=== PATIENT | male | born 1980 | race Two or more races ===

== ENCOUNTER 2020-05-17 11:14 | Emergency (ER) | payer MEDICAID ==
[~2020-05-17] VITALS: Ht 167.6 cm; Wt 83.7 kg
[2020-05-17 11:55] LABS: BASOPHILS % (AUTO) 0.3 % (0.0-2.0); HEMATOCRIT 44.2 % (41-53); HEMOGLOBIN 14.8 g/dL (13.5-17.5); LYMPHOCYTES # (AUTO) 2.6 K/uL (1.0-4.8); LYMPHOCYTES % (AUTO) 34.1 % (22.0-44.0); MEAN CORPUSCULAR HEMOGLOBIN 33.5 pg (26.0-34.0); MEAN CORPUSCULAR HGB CONC 33.4 G/dL (31.0-37.0); MEAN CORPUSCULAR VOLUME 100 fL (80-100); MONOCYTES # (AUTO) 0.9 K/uL (0.1-1.0); MONOCYTES % (AUTO) 12.3 % (2.0-9.0); NEUTROPHILS % (AUTO) 52.3 % (40.0-70.0); PLATELET COUNT (AUTO) 241 K/uL (150-450); RED BLOOD CELL COUNT(AUTO) 4.41 MIL/uL (4.50-5.90)
[2020-05-17 11:58] LABS: COVID AG,FIA SOURCE NASOPHARYNGEAL
[2020-05-17] MEDS ORDERED: SODIUM CHLORIDE 0.9% 1,000 ML IV ONE (12:00)
[2020-05-17 12:04] LABS: ANION GAP 12 mmol/L (8-16); CALCIUM, TOTAL 8.3 mg/dL (8.8-10.5); CARBON DIOXIDE 23 mmol/L (22-29); CHLORIDE 107 mmol/L (98-107); CREATININE 0.95 mg/dL (0.60-1.30); GLOMERULAR FILTR. RATE CALC > 60 mL/min (>60); GLUCOSE,RANDOM 108 mg/dL (70-110); POTASSIUM 4.6 mmol/L (3.5-5.1); SODIUM SERUM 142 mmol/L (136-145); UREA NITROGEN, BLOOD 10 mg/dL (7-18)
[2020-05-17 12:06] LABS: PROTHROMBIN TIME 10.4 SEC (9.4-11.6)
[2020-05-17 12:09] LABS: APPEARANCE,URINE CLEAR (CLEAR); BILIRUBIN,URINE NEGATIVE (NEGATIVE); GLUCOSE, URINE (UA) NEGATIVE (NEGATIVE); KETONES,URINE NEGATIVE (NEGATIVE); LEUKOCYTE ESTERASE ,URINE NEGATIVE (NEGATIVE); NITRATE,URINE NEGATIVE (NEGATIVE); OCCULT BLOOD,URINE TRACE (NEGATIVE); PH,URINE 5.5 (5.0-8.0); PROTEIN,URINE NEGATIVE (NEGATIVE); UROBILINOGEN,URINE 0.2 mg/dL (<=1.0)
[2020-05-17 12:11] LABS: BACTERIA,URINE None Seen /HPF (None Seen); RBC,URINE 0-2 /HPF (0-2); WBC,URINE None Seen /HPF (0-5)
[2020-05-17 12:14] LABS: AMPHET/METH SCREEN,URINE NEGATIVE (NEGATIVE); BARBITURATE SCREEN, URINE NEGATIVE (NEGATIVE); BENZODIAZEPINES SCREEN,URINE POSITIVE (NEGATIVE); CANNABINOID SCREEN,URINE NEGATIVE (NEGATIVE); COCAINE SCREEN,URINE NEGATIVE (NEGATIVE); METHADONE SCREEN, URINE NEGATIVE (NEGATIVE); OPIATE SCREEN,URINE NEGATIVE (NEGATIVE)
[2020-05-17 12:15] LABS: PHENCYCLIDINE SCREEN,URINE NEGATIVE (NEGATIVE)
[2020-05-17 12:18] LABS: AMMONIA < 10 umol/L (11-32); TROPONIN I < 0.02 ng/mL (0.00-0.05)
[2020-05-17 12:29] LABS: ALANINE AMINOTRANSFERASE 70 U/L (12-78); ALBUMIN 3.5 g/dL (3.4-5.0); ALKALINE PHOSPHATASE 67 U/L (46-116); ASPARTATE AMINOTRANSFERASE 57 U/L (15-37); BILIRUBIN,TOTAL 0.1 mg/dL (0.1-1.0); CREATINE KINASE, TOTAL ONLY 107 U/L (39-308); TOTAL PROTEIN, SERUM 7.9 g/dL (6.4-8.2)
[2020-05-17 21:30] VITALS: BP 110/67
== END 2020-05-17 21:45 | disposition home or self-care (01) ==
LOC: EMS 11:14
DX: F10.129 Alcohol abuse with intoxication, unspecified (principal); Y90.8 Blood alcohol level of 240 mg/100 ml or more; Z20.822 Contact with and (suspected) exposure to COVID-19
CPT/HCPCS: 36415; 70450; 71045; 80053; 80307; 81001; 82140; 82550; 84484; 85025; 85610; 87426; 93005; 96360; 99285; G0480; J7030; 51702

== ENCOUNTER 2020-05-21 19:52 | Inpatient (IN) | payer MEDICAID ==
[~2020-05-21] VITALS: Ht 165.1 cm; Wt 71.0 kg
[2020-05-21] MEDS ORDERED: SODIUM CHLORIDE 0.9% 1,000 ML IV ONE (20:15)
[2020-05-21 20:26] LABS: BASOPHILS % (AUTO) 0.5 % (0.0-2.0); EOSINOPHILS % (AUTO) 0.1 % (1.0-6.0); HEMATOCRIT 47.4 % (41-53); HEMOGLOBIN 16.1 g/dL (13.5-17.5); LYMPHOCYTES # (AUTO) 2.4 K/uL (1.0-4.8); LYMPHOCYTES % (AUTO) 46.1 % (22.0-44.0); MEAN CORPUSCULAR HGB CONC 33.9 G/dL (31.0-37.0); MEAN CORPUSCULAR VOLUME 97 fL (80-100); MONOCYTES # (AUTO) 0.4 K/uL (0.1-1.0); MONOCYTES % (AUTO) 8.3 % (2.0-9.0); NEUTROPHILS # (AUTO) 2.4 K/uL (1.8-7.7); PLATELET COUNT (AUTO) 411 K/uL (150-450); RED BLOOD CELL COUNT(AUTO) 4.87 MIL/uL (4.50-5.90); RED CELL DISTRIBUTION WIDTH 12.1 % (11.5-14.5)
[2020-05-21 20:36] LABS: ANION GAP 15 mmol/L (8-16); CALCIUM, TOTAL 8.5 mg/dL (8.8-10.5); CARBON DIOXIDE 25 mmol/L (22-29); CHLORIDE 103 mmol/L (98-107); CREATININE 1.39 mg/dL (0.60-1.30); GLOMERULAR FILTR. RATE CALC 57 mL/min (>60); GLUCOSE,RANDOM 125 mg/dL (70-110); POTASSIUM 3.4 mmol/L (3.5-5.1); SODIUM SERUM 143 mmol/L (136-145); UREA NITROGEN, BLOOD 3 mg/dL (7-18)
[2020-05-21 20:38] LABS: COVID AG,FIA SOURCE NASOPHARYNGEAL
[2020-05-21 20:42] LABS: PLATELET MORPHOLOGY COMMENT LARGE PLTS PRESENT
[2020-05-21 20:43] LABS: ALANINE AMINOTRANSFERASE 63 U/L (12-78); ALBUMIN 4.1 g/dL (3.4-5.0); ALKALINE PHOSPHATASE 69 U/L (46-116); ASPARTATE AMINOTRANSFERASE 45 U/L (15-37); BILIRUBIN,TOTAL 0.2 mg/dL (0.1-1.0); TOTAL PROTEIN, SERUM 8.3 g/dL (6.4-8.2)
[2020-05-21 20:48] LABS: SALICYLATE < 2.8 mg/dL (2.8-20.0)
[2020-05-21 20:49] LABS: ACETAMINOPHEN < 2 mcg/mL (10-30)
[2020-05-21] MEDS ORDERED: ZOLPIDEM TARTRATE 10 MG TABLET PO PRN (22:30)
[2020-05-21] MEDS ORDERED: HALOPERIDOL 5 MG TABLET PO PRN (22:30)
[2020-05-21 23:33] LABS: AMPHET/METH SCREEN,URINE NEGATIVE (NEGATIVE); BARBITURATE SCREEN, URINE NEGATIVE (NEGATIVE); BENZODIAZEPINES SCREEN,URINE POSITIVE (NEGATIVE); CANNABINOID SCREEN,URINE NEGATIVE (NEGATIVE); COCAINE SCREEN,URINE NEGATIVE (NEGATIVE); METHADONE SCREEN, URINE NEGATIVE (NEGATIVE); OPIATE SCREEN,URINE NEGATIVE (NEGATIVE)
[2020-05-21 23:35] LABS: PHENCYCLIDINE SCREEN,URINE NEGATIVE (NEGATIVE)
[2020-05-22] MEDS ORDERED: POTASSIUM CHLORIDE 20 MEQ ER TABLET PO ONE (00:30)
[2020-05-22] MEDS ORDERED: BICT1TAB PO (00:54)
[2020-05-22] MEDS ORDERED: GABA-1201 PO (00:54)
[2020-05-22] MEDS ORDERED: TRAZ-257 PO (00:54)
[2020-05-22] MEDS ORDERED: LISI-894 PO (00:54)
[2020-05-22] MEDS: LORazepam 2 MG TABLET PO PRN ×4 (01:40→17:39)
[2020-05-22 03:09] VITALS: BP 157/103
[2020-05-22 05:20] LABS: APPEARANCE,URINE CLEAR (CLEAR); BILIRUBIN,URINE NEGATIVE (NEGATIVE); GLUCOSE, URINE (UA) NEGATIVE (NEGATIVE); KETONES,URINE NEGATIVE (NEGATIVE); LEUKOCYTE ESTERASE ,URINE NEGATIVE (NEGATIVE); NITRATE,URINE NEGATIVE (NEGATIVE); OCCULT BLOOD,URINE NEGATIVE (NEGATIVE); PROTEIN,URINE TRACE (NEGATIVE); UROBILINOGEN,URINE 0.2 mg/dL (<=1.0)
[2020-05-22 06:45] LABS: CHOL/HDL RATIO 4.1 (4.2-7.3)
[2020-05-22 08:00] VITALS: BP 142/93
[2020-05-22] MEDS: GABAPENTIN 400 MG CAPSULE PO SCH ×3 (08:30→16:53)
[2020-05-22] MEDS: BICTEGRAV/EMTRICIT/TENOFOV ALA 50-200-25 MG TABLET PO SCH (08:30)
[2020-05-22] MEDS: LISINOPRIL 20 MG TABLET PO SCH (08:30)
[2020-05-22] MEDS: OMEGA-3/DHA/EPA/FISH OIL 1,000 MG CAPSULE PO SCH (10:43)
[2020-05-22] MEDS: METOPROLOL TARTRATE 50 MG TABLET PO SCH ×2 (10:44→16:53)
[2020-05-22 16:00] VITALS: BP 130/85
[2020-05-22] MEDS ORDERED: GABAPENTIN 400 MG CAPSULE PO SCH (17:00)
[2020-05-22] MEDS ORDERED: TraZODone HCL 100 MG TABLET PO SCH (21:00)
[2020-05-22] MEDS ORDERED: SIMVASTATIN 10 MG TABLET PO SCH (21:00)
[2020-05-23 04:00] VITALS: BP 106/65
[2020-05-23] MEDS: LORazepam 2 MG TABLET PO PRN ×2 (04:02→16:32)
[2020-05-23 06:34] LABS: CALCIUM, TOTAL 9.3 mg/dL (8.8-10.5); CREATININE 1.32 mg/dL (0.60-1.30); POTASSIUM 3.8 mmol/L (3.5-5.1)
[2020-05-23] MEDS: METOPROLOL TARTRATE 50 MG TABLET PO SCH ×2 (08:12→17:00)
[2020-05-23] MEDS: LISINOPRIL 20 MG TABLET PO SCH (08:12)
[2020-05-23] MEDS: OMEGA-3/DHA/EPA/FISH OIL 1,000 MG CAPSULE PO SCH (08:12)
[2020-05-23] MEDS: GABAPENTIN 400 MG CAPSULE PO SCH ×3 (08:12→16:59)
[2020-05-23] MEDS: BICTEGRAV/EMTRICIT/TENOFOV ALA 50-200-25 MG TABLET PO SCH (08:12)
[2020-05-23 08:30] VITALS: BP 107/76
[2020-05-23] MEDS ORDERED: METO50 PO (13:14)
[2020-05-23] MEDS ORDERED: SIMV-259 PO (13:14)
[2020-05-23] MEDS ORDERED: OMEG100033 PO (13:14)
== END 2020-05-23 18:15 | disposition home or self-care (01) | DRG 751 ==
LOC: EMS 19:52 → 3EI 23:00
PROVIDERS: ADMIT Psychiatry & Neurology Psychiatry; ATTEND Psychiatry & Neurology Psychiatry
DX: F33.2 Major depressive disorder, recurrent severe without psychotic features (principal); F10.229 Alcohol dependence with intoxication, unspecified; E11.65 Type 2 diabetes mellitus with hyperglycemia; Z20.822 Contact with and (suspected) exposure to COVID-19; K59.00 Constipation, unspecified; G47.00 Insomnia, unspecified; E78.5 Hyperlipidemia, unspecified; Z21 Asymptomatic human immunodeficiency virus [HIV] infection status; E87.6 Hypokalemia; I10 Essential (primary) hypertension; Y90.6 Blood alcohol level of 120-199 mg/100 ml; K21.9 Gastro-esophageal reflux disease without esophagitis; F41.9 Anxiety disorder, unspecified; T43.212A Poisoning by selective serotonin and norepinephrine reuptake inhibitors, intentional self-harm, initial encounter; Y92.89 Other specified places as the place of occurrence of the external cause; Z87.891 Personal history of nicotine dependence; Z83.3 Family history of diabetes mellitus; Z82.49 Family history of ischemic heart disease and other diseases of the circulatory system
CPT/HCPCS: 83735; 87081; 87426; 93005; 99291; A9575; G0480; G0481

== ENCOUNTER 2020-07-16 13:33 | Emergency (ER) | payer MEDICAID ==
[~2020-07-16] VITALS: Ht 172.7 cm; Wt 85.0 kg
[~2020-07-16 13:33] MED LIST: BICT1TAB PO; CITA-144 PO; GABA-1201 PO; LISI-894 PO; METO50 PO; OMEG100033 PO; SIMV-259 PO; TRAZ-257 PO
[2020-07-16 15:19] LABS: BASOPHILS % (AUTO) 0.6 % (0.0-2.0); EOSINOPHILS % (AUTO) 0.6 % (1.0-6.0); HEMATOCRIT 44.2 % (41-53); HEMOGLOBIN 14.8 g/dL (13.5-17.5); LYMPHOCYTES # (AUTO) 3.1 K/uL (1.0-4.8); LYMPHOCYTES % (AUTO) 39.8 % (22.0-44.0); MEAN CORPUSCULAR HGB CONC 33.4 G/dL (31.0-37.0); MEAN CORPUSCULAR VOLUME 102 fL (80-100); MONOCYTES % (AUTO) 12.1 % (2.0-9.0); NEUTROPHILS # (AUTO) 3.7 K/uL (1.8-7.7); NEUTROPHILS % (AUTO) 46.9 % (40.0-70.0); PLATELET COUNT (AUTO) 233 K/uL (150-450); RED BLOOD CELL COUNT(AUTO) 4.35 MIL/uL (4.50-5.90)
[2020-07-16 15:28] LABS: ANION GAP 12 mmol/L (8-16); CALCIUM, TOTAL 8.4 mg/dL (8.8-10.5); CARBON DIOXIDE 23 mmol/L (22-29); CHLORIDE 104 mmol/L (98-107); CREATININE 1.23 mg/dL (0.60-1.30); GLOMERULAR FILTR. RATE CALC > 60 mL/min (>60); GLUCOSE,RANDOM 105 mg/dL (70-110); POTASSIUM 4.1 mmol/L (3.5-5.1); SODIUM SERUM 139 mmol/L (136-145); UREA NITROGEN, BLOOD 15 mg/dL (7-18)
[2020-07-16 15:34] LABS: ALANINE AMINOTRANSFERASE 54 U/L (12-78); ALKALINE PHOSPHATASE 95 U/L (46-116); ASPARTATE AMINOTRANSFERASE 37 U/L (15-37); BILIRUBIN,TOTAL 0.1 mg/dL (0.1-1.0); TOTAL PROTEIN, SERUM 7.4 g/dL (6.4-8.2)
[2020-07-16 16:59] VITALS: BP 106/66
[2020-07-16 17:08] LABS: PLATELET MORPHOLOGY COMMENT GIANT PLTS PRESENT
== END 2020-07-16 17:49 | disposition home or self-care (01) ==
LOC: EMS 13:33
DX: F10.229 Alcohol dependence with intoxication, unspecified (principal); Y90.8 Blood alcohol level of 240 mg/100 ml or more; Z79.899 Other long term (current) drug therapy
CPT/HCPCS: 36415; 70450; 72125; 80053; 82140; 85025; 99285; G0480

== ENCOUNTER 2020-11-14 15:50 | Inpatient (IN) | payer MEDICAID, OTHER ==
[~2020-11-14] VITALS: Ht 175.3 cm; Wt 84.6 kg
[2020-11-14 18:40] LABS: COVID AG,FIA SOURCE NASOPHARYNGEAL
[2020-11-14] MEDS ORDERED: SODIUM CHLORIDE 0.9% 1,000 ML IV ONE (18:45)
[2020-11-14] MEDS ORDERED: LORazepam 2 MG/ML VIAL IVP ONE ×2 (18:45→21:30)
[2020-11-14 18:48] LABS: BASOPHILS % (AUTO) 0.2 % (0.0-2.0); EOSINOPHILS % (AUTO) 0 % (1.0-6.0); HEMATOCRIT 46.3 % (41-53); HEMOGLOBIN 15.3 g/dL (13.5-17.5); LYMPHOCYTES # (AUTO) 1.9 K/uL (1.0-4.8); LYMPHOCYTES % (AUTO) 26.9 % (22.0-44.0); MEAN CORPUSCULAR HEMOGLOBIN 32.4 pg (26.0-34.0); MEAN CORPUSCULAR VOLUME 98 fL (80-100); MONOCYTES # (AUTO) 0.6 K/uL (0.1-1.0); NEUTROPHILS # (AUTO) 4.6 K/uL (1.8-7.7); NEUTROPHILS % (AUTO) 64.9 % (40.0-70.0); PLATELET COUNT (AUTO) 200 K/uL (150-450); RED BLOOD CELL COUNT(AUTO) 4.72 MIL/uL (4.50-5.90); RED CELL DISTRIBUTION WIDTH 14.4 % (11.5-14.5)
[2020-11-14 19:33] LABS: ANION GAP 13 mmol/L (8-16); CARBON DIOXIDE 23 mmol/L (22-29); CHLORIDE 108 mmol/L (98-107); CREATININE 1.42 mg/dL (0.60-1.30); GLOMERULAR FILTR. RATE CALC 55 mL/min (>60); GLUCOSE,RANDOM 105 mg/dL (70-110); POTASSIUM 3.9 mmol/L (3.5-5.1); SODIUM SERUM 144 mmol/L (136-145); UREA NITROGEN, BLOOD 9 mg/dL (7-18)
[2020-11-14 19:34] LABS: INR 0.9 (0.9-1.1)
[2020-11-14 19:39] LABS: ALANINE AMINOTRANSFERASE 31 U/L (12-78); ALBUMIN 3.7 g/dL (3.4-5.0); ALKALINE PHOSPHATASE 57 U/L (46-116); ASPARTATE AMINOTRANSFERASE 25 U/L (15-37); BILIRUBIN,TOTAL 0.3 mg/dL (0.1-1.0); LIPASE 270 U/L (73-393); TOTAL PROTEIN, SERUM 7.4 g/dL (6.4-8.2)
[2020-11-14 19:41] LABS: ACETAMINOPHEN < 2 mcg/mL (10-30)
[2020-11-14 20:06] LABS: SALICYLATE 1.4 mg/dL (2.8-20.0)
[2020-11-14 21:33] LABS: APPEARANCE,URINE CLEAR (CLEAR); BILIRUBIN,URINE NEGATIVE (NEGATIVE); GLUCOSE, URINE (UA) NEGATIVE (NEGATIVE); KETONES,URINE TRACE mg/dL (NEGATIVE); LEUKOCYTE ESTERASE ,URINE NEGATIVE (NEGATIVE); NITRATE,URINE NEGATIVE (NEGATIVE); OCCULT BLOOD,URINE TRACE (NEGATIVE); PH,URINE 5.5 (5.0-8.0); PROTEIN,URINE TRACE (NEGATIVE); UROBILINOGEN,URINE 0.2 mg/dL (<=1.0)
[2020-11-14 21:47] LABS: AMPHET/METH SCREEN,URINE NEGATIVE (NEGATIVE); BARBITURATE SCREEN, URINE POSITIVE (NEGATIVE); BENZODIAZEPINES SCREEN,URINE POSITIVE (NEGATIVE); CANNABINOID SCREEN,URINE NEGATIVE (NEGATIVE); COCAINE SCREEN,URINE NEGATIVE (NEGATIVE); METHADONE SCREEN, URINE NEGATIVE (NEGATIVE); OPIATE SCREEN,URINE NEGATIVE (NEGATIVE)
[2020-11-14 21:48] LABS: PHENCYCLIDINE SCREEN,URINE NEGATIVE (NEGATIVE)
[2020-11-14 22:20] LABS: BACTERIA,URINE Rare /HPF (None Seen); RBC,URINE None Seen /HPF (0-2); WBC,URINE 0-2 /HPF (0-5)
[2020-11-15] VITALS (10 sets, daily range): BP systolic 117–164; BP diastolic 82–109
[2020-11-15] MEDS: ZOLPIDEM TARTRATE 10 MG TABLET PO PRN ×2 (01:24→20:20)
[2020-11-15] MEDS: LORazepam 2 MG TABLET PO PRN ×5 (01:24→18:25)
[2020-11-15 01:31] LABS: CHOLESTEROL 183 mg/dL (131-200); HDL CHOLESTEROL 62 mg/dL (40-60); LDL CHOL (CALC.) 78 mg/dL (0-130); TRIGLYCERIDES 217 mg/dL (15-150)
[2020-11-15] MEDS ORDERED: MAG HYDROX/AL HYDROX/SIMETH ES 30 ML SUSPENSION UDCUP PO PRN (10:30)
[2020-11-15] MEDS ORDERED: DOCUSATE SODIUM 100 MG CAPSULE PO PRN (10:30)
[2020-11-15] MEDS ORDERED: IBUPROFEN 400 MG TABLET PO PRN (10:30)
[2020-11-15] MEDS ORDERED: LOPERAMIDE HCL 2 MG CAPSULE PO PRN (10:30)
[2020-11-15] MEDS ORDERED: MAGNESIUM HYDROXIDE SUSPENSION 30 ML UDCUP PO PRN (10:30)
[2020-11-15] MEDS ORDERED: GuaiFENesin/D-METHORPHAN [SUGAR-FREE] 200-20MG/10 ML SYRUP UDCUP PO PRN (10:30)
[2020-11-15] MEDS ORDERED: CloNIDine HCL 0.1 MG TABLET PO PRN (10:30)
[2020-11-15] MEDS ORDERED: NICOTINE 14 MG/24 HOUR PATCH TD PRN (10:30)
[2020-11-15] MEDS ORDERED: PETROLATUM,WHITE 28 GM JELLY TP PRN (10:30)
[2020-11-15] MEDS ORDERED: ONDANSETRON HCL 4 MG TABLET PO PRN (10:30)
[2020-11-15] MEDS ORDERED: ALBUTEROL SULFATE HFA 90 MCG/PUFF 8 GM INHALER IH PRN (10:30)
[2020-11-15] MEDS ORDERED: ACETAMINOPHEN 325 MG TABLET PO PRN (10:30)
[2020-11-15] MEDS: LISINOPRIL 20 MG TABLET PO SCH (10:44)
[2020-11-15] MEDS ORDERED: PNEUMOCOCCAL VACCINE POLYVALENT 0.5 ML VIAL [PPSV23] IM. ONE (11:00)
[2020-11-15] MEDS: METOPROLOL TARTRATE 50 MG TABLET PO SCH (16:43)
[2020-11-15] MEDS: SIMVASTATIN 10 MG TABLET PO SCH (20:20)
[2020-11-16] VITALS (8 sets, daily range): BP systolic 113–126; BP diastolic 71–82
[2020-11-16] MEDS ORDERED: LORazepam 2 MG TABLET PO PRN (07:00)
[2020-11-16 07:08] LABS: BASOPHILS % (AUTO) 0.5 % (0.0-2.0); EOSINOPHILS % (AUTO) 1.5 % (1.0-6.0); HEMATOCRIT 42.8 % (41-53); HEMOGLOBIN 14.3 g/dL (13.5-17.5); LYMPHOCYTES # (AUTO) 2.5 K/uL (1.0-4.8); LYMPHOCYTES % (AUTO) 35.4 % (22.0-44.0); MEAN CORPUSCULAR HEMOGLOBIN 32.5 pg (26.0-34.0); MEAN CORPUSCULAR HGB CONC 33.5 G/dL (31.0-37.0); MEAN CORPUSCULAR VOLUME 97 fL (80-100); MONOCYTES # (AUTO) 0.7 K/uL (0.1-1.0); MONOCYTES % (AUTO) 10.2 % (2.0-9.0); NEUTROPHILS # (AUTO) 3.7 K/uL (1.8-7.7); NEUTROPHILS % (AUTO) 52.4 % (40.0-70.0); PLATELET COUNT (AUTO) 149 K/uL (150-450); RED BLOOD CELL COUNT(AUTO) 4.41 MIL/uL (4.50-5.90)
[2020-11-16 07:15] LABS: HEMOGLOBIN A1C 5.6 % (3.8-5.6)
[2020-11-16 07:33] LABS: FREE T4 (FREE THYROXINE) 1.19 ng/dL (0.76-1.46); THYROID STIMULATING HORMONE 2.42 uIU/mL (0.36-3.74)
[2020-11-16] MEDS: LISINOPRIL 20 MG TABLET PO SCH (09:05)
[2020-11-16] MEDS: LORazepam 2 MG TABLET PO SCH ×4 (09:05→20:36)
[2020-11-16] MEDS: BICTEGRAV/EMTRICIT/TENOFOV ALA 50-200-25 MG TABLET PO SCH (09:05)
[2020-11-16] MEDS: METOPROLOL TARTRATE 50 MG TABLET PO SCH ×2 (09:05→16:43)
[2020-11-16] MEDS: HALOPERIDOL 5 MG TABLET PO PRN (18:15)
[2020-11-16] MEDS: SIMVASTATIN 10 MG TABLET PO SCH (20:36)
[2020-11-17 06:36] VITALS: BP 123/83
[2020-11-17 06:42] VITALS: BP 120/80
[2020-11-17 08:00] VITALS: BP 115/63
[2020-11-17] MEDS: LORazepam 2 MG TABLET PO SCH ×4 (08:37→20:05)
[2020-11-17] MEDS: METOPROLOL TARTRATE 50 MG TABLET PO SCH ×2 (08:37→17:12)
[2020-11-17] MEDS: LISINOPRIL 20 MG TABLET PO SCH (08:37)
[2020-11-17] MEDS: BICTEGRAV/EMTRICIT/TENOFOV ALA 50-200-25 MG TABLET PO SCH (08:37)
[2020-11-17 09:00] VITALS: BP 115/63
[2020-11-17] MEDS: QUEtiapine FUMARATE 25 MG TABLET PO SCH ×2 (11:05→17:12)
[2020-11-17 16:03] VITALS: BP 117/65
[2020-11-17] MEDS: SIMVASTATIN 10 MG TABLET PO SCH (20:04)
[2020-11-17] MEDS: ZOLPIDEM TARTRATE 10 MG TABLET PO PRN (20:06)
[2020-11-18 00:37] VITALS: BP 117/69
[2020-11-18 06:38] VITALS: BP 120/66
[2020-11-18] MEDS ORDERED: LORazepam 1 MG TABLET PO PRN (07:00)
[2020-11-18 08:00] VITALS: BP 117/69
[2020-11-18 08:12] VITALS: BP 127/79
[2020-11-18] MEDS: METOPROLOL TARTRATE 50 MG TABLET PO SCH ×2 (08:58→16:30)
[2020-11-18] MEDS: QUEtiapine FUMARATE 25 MG TABLET PO SCH ×2 (08:58→16:30)
[2020-11-18] MEDS: THIAMINE 100 MG TABLET PO SCH (08:58)
[2020-11-18] MEDS: OMEGA-3/DHA/EPA/FISH OIL 1,000 MG CAPSULE PO SCH (08:58)
[2020-11-18] MEDS: BICTEGRAV/EMTRICIT/TENOFOV ALA 50-200-25 MG TABLET PO SCH (08:58)
[2020-11-18] MEDS: FOLIC ACID 1 MG TABLET PO SCH (08:58)
[2020-11-18] MEDS: LISINOPRIL 20 MG TABLET PO SCH (08:58)
[2020-11-18] MEDS: LORazepam 1 MG TABLET PO SCH ×4 (09:01→20:37)
[2020-11-18 16:20] VITALS: BP 145/97
[2020-11-18] MEDS: SIMVASTATIN 10 MG TABLET PO SCH (20:38)
[2020-11-18] MEDS: ZOLPIDEM TARTRATE 10 MG TABLET PO PRN (20:44)
[2020-11-19 00:58] VITALS: BP 123/79
[2020-11-19 01:00] VITALS: BP 123/79
[2020-11-19] MEDS: HALOPERIDOL 5 MG TABLET PO PRN ×2 (01:54→17:19)
[2020-11-19] MEDS ORDERED: LORazepam 1 MG TABLET PO PRN (07:00)
[2020-11-19 08:00] VITALS: BP 119/76
[2020-11-19 08:13] VITALS: BP 119/76
[2020-11-19] MEDS: FOLIC ACID 1 MG TABLET PO SCH (09:08)
[2020-11-19] MEDS: METOPROLOL TARTRATE 50 MG TABLET PO SCH ×2 (09:08→16:23)
[2020-11-19] MEDS: LISINOPRIL 20 MG TABLET PO SCH (09:08)
[2020-11-19] MEDS: THIAMINE 100 MG TABLET PO SCH (09:08)
[2020-11-19] MEDS: OMEGA-3/DHA/EPA/FISH OIL 1,000 MG CAPSULE PO SCH (09:08)
[2020-11-19] MEDS: QUEtiapine FUMARATE 25 MG TABLET PO SCH ×2 (09:08→16:23)
[2020-11-19] MEDS: BICTEGRAV/EMTRICIT/TENOFOV ALA 50-200-25 MG TABLET PO SCH (09:08)
[2020-11-19 16:15] VITALS: BP 119/75
[2020-11-19] MEDS: ZOLPIDEM TARTRATE 10 MG TABLET PO PRN (20:19)
[2020-11-19] MEDS: SIMVASTATIN 10 MG TABLET PO SCH (20:19)
[2020-11-20 00:59] VITALS: BP 121/70
[2020-11-20 08:22] VITALS: BP 126/87
[2020-11-20] MEDS: FOLIC ACID 1 MG TABLET PO SCH (08:24)
[2020-11-20] MEDS: BICTEGRAV/EMTRICIT/TENOFOV ALA 50-200-25 MG TABLET PO SCH (08:24)
[2020-11-20] MEDS: OMEGA-3/DHA/EPA/FISH OIL 1,000 MG CAPSULE PO SCH (08:25)
[2020-11-20] MEDS: QUEtiapine FUMARATE 25 MG TABLET PO SCH (08:25)
[2020-11-20] MEDS: METOPROLOL TARTRATE 50 MG TABLET PO SCH (08:25)
[2020-11-20] MEDS: THIAMINE 100 MG TABLET PO SCH (08:25)
[2020-11-20] MEDS: LISINOPRIL 20 MG TABLET PO SCH (08:25)
[2020-11-20] MEDS: HALOPERIDOL 5 MG TABLET PO PRN (08:33)
[2020-11-20] MEDS ORDERED: QUET25TA PO (11:02)
[2020-11-20] MEDS ORDERED: METO50 PO (11:03)
== END 2020-11-20 12:25 | disposition home or self-care (01) | DRG 751 ==
LOC: EMS 15:55 → B2S 11-15 06:27
PROVIDERS: ADMIT Psychiatry & Neurology Child & Adolescent Psychiatry; ATTEND Psychiatry & Neurology Child & Adolescent Psychiatry
DX: F33.2 Major depressive disorder, recurrent severe without psychotic features (principal); N17.9 Acute kidney failure, unspecified; B18.2 Chronic viral hepatitis C; E78.5 Hyperlipidemia, unspecified; F10.229 Alcohol dependence with intoxication, unspecified; R45.851 Suicidal ideations; F12.90 Cannabis use, unspecified, uncomplicated; F41.1 Generalized anxiety disorder; F41.0 Panic disorder [episodic paroxysmal anxiety]; I10 Essential (primary) hypertension; M47.9 Spondylosis, unspecified; Z20.822 Contact with and (suspected) exposure to COVID-19; Z59.0 Homelessness; Z86.16 Personal history of COVID-19; Z86.73 Personal history of transient ischemic attack (TIA), and cerebral infarction without residual deficits; Z91.5 Personal history of self-harm
CPT/HCPCS: 70450; 72125; 80053; 80061; 81001; 82009; 83036; 83690; 83930; 84439; 84443; 85025; 85610; 85730; 93005; 99285; G0480; G0481; J2060; J7030; Q0162; Q9967

== ENCOUNTER 2020-12-19 02:15 | Inpatient (IN) | payer MEDICAID ==
[~2020-12-19 02:15] MED LIST changes: -CITA-144 PO; -GABA-1201 PO; +QUET25TA PO; -TRAZ-257 PO
[2020-12-19 03:00] VITALS: BP 146/99
[2020-12-19] MEDS: LORazepam 2 MG TABLET PO PRN ×2 (03:21→10:14)
[2020-12-19 04:00] VITALS: BP 138/78
[2020-12-19] MEDS ORDERED: PNEUMOCOCCAL VACCINE POLYVALENT 0.5 ML VIAL [PPSV23] IM. ONE (04:30)
[2020-12-19] MEDS ORDERED: INFLUENZA VIRUS VACCINE QVS 2021-22 (6MO+)/PF 60 MCG/0.5 ML SYRINGE IM. ONE (04:30)
[2020-12-19 05:00] VITALS: BP 141/79
[2020-12-19 06:00] VITALS: BP 144/82
[2020-12-19 08:16] VITALS: BP 119/80
[2020-12-19 08:27] LABS: BASOPHILS % (AUTO) 0.7 % (0.0-2.0); HEMATOCRIT 39.8 % (41-53); HEMOGLOBIN 13.9 g/dL (13.5-17.5); LYMPHOCYTES # (AUTO) 2.5 K/uL (1.0-4.8); LYMPHOCYTES % (AUTO) 33.2 % (22.0-44.0); MEAN CORPUSCULAR HEMOGLOBIN 33.5 pg (26.0-34.0); MEAN CORPUSCULAR HGB CONC 34.8 G/dL (31.0-37.0); MEAN CORPUSCULAR VOLUME 96 fL (80-100); MONOCYTES # (AUTO) 0.6 K/uL (0.1-1.0); MONOCYTES % (AUTO) 7.8 % (2.0-9.0); NEUTROPHILS # (AUTO) 4.3 K/uL (1.8-7.7); NEUTROPHILS % (AUTO) 57.3 % (40.0-70.0); PLATELET COUNT (AUTO) 161 K/uL (150-450); RED BLOOD CELL COUNT(AUTO) 4.14 MIL/uL (4.50-5.90); RED CELL DISTRIBUTION WIDTH 13.6 % (11.5-14.5)
[2020-12-19 08:48] LABS: ALANINE AMINOTRANSFERASE 32 U/L (12-78); ALBUMIN 3.5 g/dL (3.4-5.0); ALKALINE PHOSPHATASE 82 U/L (46-116); ANION GAP 9 mmol/L (8-16); ASPARTATE AMINOTRANSFERASE 27 U/L (15-37); BILIRUBIN,TOTAL 0.7 mg/dL (0.1-1.0); CALCIUM, TOTAL 8.2 mg/dL (8.8-10.5); CARBON DIOXIDE 27 mmol/L (22-29); CHLORIDE 103 mmol/L (98-107); CHOL/HDL RATIO 2.7 (4.2-7.3); CHOLESTEROL 150 mg/dL (131-200); CREATININE 0.64 mg/dL (0.60-1.30); GLOMERULAR FILTR. RATE CALC > 60 mL/min (>60); GLUCOSE,RANDOM 101 mg/dL (70-110); HDL CHOLESTEROL 55 mg/dL (40-60); LDL CHOL (CALC.) 78 mg/dL (0-130); POTASSIUM 3.5 mmol/L (3.5-5.1); SODIUM SERUM 139 mmol/L (136-145); THYROID STIMULATING HORMONE 2.53 uIU/mL (0.36-3.74); TOTAL PROTEIN, SERUM 6.8 g/dL (6.4-8.2); TRIGLYCERIDES 87 mg/dL (15-150); UREA NITROGEN, BLOOD 11 mg/dL (7-18)
[2020-12-19] MEDS: BusPIRone HCL 10 MG TABLET PO SCH ×2 (13:46→16:32)
[2020-12-19] MEDS: SERTRALINE HCL 100 MG TABLET PO SCH (13:47)
[2020-12-19] MEDS ORDERED: MAGNESIUM HYDROXIDE SUSPENSION 30 ML UDCUP PO PRN (14:15)
[2020-12-19] MEDS ORDERED: ACETAMINOPHEN 325 MG TABLET PO PRN (14:15)
[2020-12-19] MEDS ORDERED: MAG HYDROX/AL HYDROX/SIMETH ES 30 ML SUSPENSION UDCUP PO PRN (14:15)
[2020-12-19] MEDS ORDERED: GuaiFENesin/D-METHORPHAN [SUGAR-FREE] 200-20MG/10 ML SYRUP UDCUP PO PRN (14:15)
[2020-12-19] MEDS ORDERED: PETROLATUM,WHITE 28 GM JELLY TP PRN (14:15)
[2020-12-19] MEDS ORDERED: CloNIDine HCL 0.1 MG TABLET PO PRN (14:15)
[2020-12-19] MEDS ORDERED: DOCUSATE SODIUM 100 MG CAPSULE PO PRN (14:15)
[2020-12-19] MEDS ORDERED: ONDANSETRON HCL 4 MG TABLET PO PRN (14:15)
[2020-12-19] MEDS ORDERED: NICOTINE 14 MG/24 HOUR PATCH TD PRN (14:15)
[2020-12-19] MEDS ORDERED: LOPERAMIDE HCL 2 MG CAPSULE PO PRN (14:15)
[2020-12-19] MEDS ORDERED: IBUPROFEN 400 MG TABLET PO PRN (14:15)
[2020-12-19] MEDS ORDERED: ALBUTEROL SULFATE HFA 90 MCG/PUFF 8 GM INHALER IH PRN (14:15)
[2020-12-19 16:14] VITALS: BP 113/70
[2020-12-19] MEDS: ZOLPIDEM TARTRATE 10 MG TABLET PO PRN (20:44)
[2020-12-20 00:14] VITALS: BP 137/88
[2020-12-20] MEDS: LORazepam 2 MG TABLET PO PRN ×2 (06:54→15:03)
[2020-12-20 08:14] VITALS: BP 129/79
[2020-12-20] MEDS: MULTIVITAMINS WITH MINERALS, THERAPEUTIC TABLET PO SCH (08:56)
[2020-12-20] MEDS: BusPIRone HCL 10 MG TABLET PO SCH ×3 (08:56→16:36)
[2020-12-20] MEDS: THIAMINE 100 MG TABLET PO SCH (08:56)
[2020-12-20] MEDS: SERTRALINE HCL 100 MG TABLET PO SCH (08:56)
[2020-12-20] MEDS: FOLIC ACID 1 MG TABLET PO SCH (08:56)
[2020-12-20] MEDS: HALOPERIDOL 5 MG TABLET PO PRN (13:33)
[2020-12-20 16:15] VITALS: BP 148/97
[2020-12-20] MEDS: BICTEGRAV/EMTRICIT/TENOFOV ALA 50-200-25 MG TABLET PO SCH (16:36)
[2020-12-20] MEDS: METOPROLOL TARTRATE 50 MG TABLET PO SCH (16:36)
[2020-12-20] MEDS: SIMVASTATIN 10 MG TABLET PO SCH (20:36)
[2020-12-20] MEDS: GABAPENTIN 300 MG CAPSULE PO SCH (20:36)
[2020-12-20] MEDS: ZOLPIDEM TARTRATE 10 MG TABLET PO PRN (20:36)
[2020-12-21 04:45] VITALS: BP 136/72
[2020-12-21] MEDS: THIAMINE 100 MG TABLET PO SCH (08:24)
[2020-12-21] MEDS: FOLIC ACID 1 MG TABLET PO SCH (08:24)
[2020-12-21] MEDS: LISINOPRIL 20 MG TABLET PO SCH (08:25)
[2020-12-21] MEDS: BusPIRone HCL 10 MG TABLET PO SCH ×3 (08:25→17:02)
[2020-12-21] MEDS: METOPROLOL TARTRATE 50 MG TABLET PO SCH ×2 (08:25→17:02)
[2020-12-21] MEDS: MULTIVITAMINS WITH MINERALS, THERAPEUTIC TABLET PO SCH (08:25)
[2020-12-21] MEDS: BICTEGRAV/EMTRICIT/TENOFOV ALA 50-200-25 MG TABLET PO SCH (08:25)
[2020-12-21] MEDS: SERTRALINE HCL 100 MG TABLET PO SCH (08:25)
[2020-12-21 08:27] VITALS: BP 137/77
[2020-12-21] MEDS: OMEGA-3/DHA/EPA/FISH OIL 1,000 MG CAPSULE PO SCH (08:55)
[2020-12-21] MEDS ORDERED: OMEGA-3/DHA/EPA/FISH OIL 1,000 MG CAPSULE PO SCH (09:00)
[2020-12-21] MEDS: HALOPERIDOL 5 MG TABLET PO PRN (12:49)
[2020-12-21] MEDS: LORazepam 2 MG TABLET PO PRN (14:59)
[2020-12-21 16:05] VITALS: BP 110/76
[2020-12-21] MEDS: SIMVASTATIN 10 MG TABLET PO SCH (20:26)
[2020-12-21] MEDS: ZOLPIDEM TARTRATE 10 MG TABLET PO PRN (20:26)
[2020-12-21] MEDS: GABAPENTIN 300 MG CAPSULE PO SCH (20:26)
[2020-12-22 00:52] VITALS: BP 139/78
[2020-12-22 08:23] VITALS: BP 114/75
[2020-12-22] MEDS: THIAMINE 100 MG TABLET PO SCH (09:00)
[2020-12-22] MEDS: BICTEGRAV/EMTRICIT/TENOFOV ALA 50-200-25 MG TABLET PO SCH (09:48)
[2020-12-22] MEDS: SERTRALINE HCL 100 MG TABLET PO SCH (09:49)
[2020-12-22] MEDS: BusPIRone HCL 10 MG TABLET PO SCH ×3 (09:49→17:34)
[2020-12-22] MEDS: OMEGA-3/DHA/EPA/FISH OIL 1,000 MG CAPSULE PO SCH (09:49)
[2020-12-22] MEDS: MULTIVITAMINS WITH MINERALS, THERAPEUTIC TABLET PO SCH (09:49)
[2020-12-22] MEDS: FOLIC ACID 1 MG TABLET PO SCH (09:49)
[2020-12-22] MEDS: METOPROLOL TARTRATE 50 MG TABLET PO SCH ×2 (09:51→17:34)
[2020-12-22] MEDS: LISINOPRIL 20 MG TABLET PO SCH (09:52)
[2020-12-22] MEDS: LORazepam 2 MG TABLET PO PRN ×2 (11:22→16:28)
[2020-12-22 16:21] VITALS: BP 113/74
[2020-12-22] MEDS: SIMVASTATIN 10 MG TABLET PO SCH (20:12)
[2020-12-22] MEDS: GABAPENTIN 300 MG CAPSULE PO SCH (20:12)
[2020-12-22] MEDS: ZOLPIDEM TARTRATE 10 MG TABLET PO PRN (20:15)
[2020-12-23 00:08] VITALS: BP 108/68
[2020-12-23 08:16] VITALS: BP 109/67
[2020-12-23] MEDS: MULTIVITAMINS WITH MINERALS, THERAPEUTIC TABLET PO SCH (08:51)
[2020-12-23] MEDS: BusPIRone HCL 10 MG TABLET PO SCH ×3 (08:51→16:53)
[2020-12-23] MEDS: OMEGA-3/DHA/EPA/FISH OIL 1,000 MG CAPSULE PO SCH (08:51)
[2020-12-23] MEDS: BICTEGRAV/EMTRICIT/TENOFOV ALA 50-200-25 MG TABLET PO SCH (08:51)
[2020-12-23] MEDS: SERTRALINE HCL 100 MG TABLET PO SCH (08:52)
[2020-12-23] MEDS: FOLIC ACID 1 MG TABLET PO SCH (08:52)
[2020-12-23] MEDS: THIAMINE 100 MG TABLET PO SCH (08:52)
[2020-12-23] MEDS: LISINOPRIL 20 MG TABLET PO SCH (08:57)
[2020-12-23] MEDS: METOPROLOL TARTRATE 50 MG TABLET PO SCH ×2 (08:58→16:52)
[2020-12-23] MEDS: LORazepam 2 MG TABLET PO PRN ×3 (09:42→19:16)
[2020-12-23 16:04] VITALS: BP 107/77
[2020-12-23] MEDS: SIMVASTATIN 10 MG TABLET PO SCH (20:31)
[2020-12-23] MEDS: GABAPENTIN 300 MG CAPSULE PO SCH (20:32)
[2020-12-23] MEDS: ZOLPIDEM TARTRATE 10 MG TABLET PO PRN (20:34)
[2020-12-24 03:11] VITALS: BP 103/67
[2020-12-24 08:08] VITALS: BP 97/67
[2020-12-24] MEDS: SERTRALINE HCL 100 MG TABLET PO SCH (08:53)
[2020-12-24] MEDS: OMEGA-3/DHA/EPA/FISH OIL 1,000 MG CAPSULE PO SCH (08:54)
[2020-12-24] MEDS: THIAMINE 100 MG TABLET PO SCH (08:54)
[2020-12-24] MEDS: BICTEGRAV/EMTRICIT/TENOFOV ALA 50-200-25 MG TABLET PO SCH (08:54)
[2020-12-24] MEDS: BusPIRone HCL 10 MG TABLET PO SCH ×3 (08:54→17:30)
[2020-12-24] MEDS: MULTIVITAMINS WITH MINERALS, THERAPEUTIC TABLET PO SCH (08:54)
[2020-12-24] MEDS: FOLIC ACID 1 MG TABLET PO SCH (08:54)
[2020-12-24 09:17] LABS: COVID AG,FIA SOURCE NASOPHARYNGEAL
[2020-12-24 09:30] VITALS: BP 119/79
[2020-12-24] MEDS: METOPROLOL TARTRATE 50 MG TABLET PO SCH ×2 (10:37→17:30)
[2020-12-24] MEDS: LISINOPRIL 20 MG TABLET PO SCH (10:37)
[2020-12-24] MEDS: LORazepam 2 MG TABLET PO PRN (13:16)
[2020-12-24 16:11] VITALS: BP 100/65
[2020-12-24] MEDS ORDERED: BUSP10TA23 PO (17:09)
[2020-12-24] MEDS ORDERED: SERT-162 PO (17:09)
[2020-12-24] MEDS ORDERED: GABA-1181 PO (17:09)
[2020-12-24 17:30] VITALS: BP 123/77
== END 2020-12-24 20:54 | disposition home or self-care (01) | DRG 751 ==
LOC: B2S 02:15
PROVIDERS: ADMIT Psychiatry & Neurology Child & Adolescent Psychiatry; ATTEND Psychiatry & Neurology Child & Adolescent Psychiatry
PROC: 3E0234Z Introduction of Serum, Toxoid and Vaccine into Muscle, Percutaneous Approach (ICD-10-PCS; principal; 2020-12-20)
PROC: 3E02340 Introduction of Influenza Vaccine into Muscle, Percutaneous Approach (ICD-10-PCS; 2020-12-20)
DX: F33.2 Major depressive disorder, recurrent severe without psychotic features (principal); B18.2 Chronic viral hepatitis C; E78.5 Hyperlipidemia, unspecified; F60.3 Borderline personality disorder; I10 Essential (primary) hypertension; Z21 Asymptomatic human immunodeficiency virus [HIV] infection status; G62.9 Polyneuropathy, unspecified; F10.10 Alcohol abuse, uncomplicated; Y90.9 Presence of alcohol in blood, level not specified; F41.9 Anxiety disorder, unspecified; F19.10 Other psychoactive substance abuse, uncomplicated; Z20.822 Contact with and (suspected) exposure to COVID-19; Z71.41 Alcohol abuse counseling and surveillance of alcoholic; Z91.51 Personal history of suicidal behavior; Y92.89 Other specified places as the place of occurrence of the external cause; Z79.899 Other long term (current) drug therapy; Z23 Encounter for immunization; Z71.51 Drug abuse counseling and surveillance of drug abuser
CPT/HCPCS: 80053; 80061; 84439; 84443; 85025; 87081; 90686; 90732; Q9967

== ENCOUNTER 2021-01-12 09:01 | Inpatient (IN) | payer MEDICAID, OTHER ==
[~2021-01-12] VITALS: Ht 175.3 cm; Wt 86.3 kg
[~2021-01-12 09:01] MED LIST changes: +BUSP10TA23 PO; +GABA-1181 PO; -OMEG100033 PO; -QUET25TA PO; +SERT-162 PO
[2021-01-12 09:44] LABS: BASOPHILS % (AUTO) 0.6 % (0.0-2.0); EOSINOPHILS % (AUTO) 0.7 % (1.0-6.0); HEMATOCRIT 44.3 % (41-53); HEMOGLOBIN 14.8 g/dL (13.5-17.5); LYMPHOCYTES # (AUTO) 1.4 K/uL (1.0-4.8); LYMPHOCYTES % (AUTO) 21.1 % (22.0-44.0); MEAN CORPUSCULAR HEMOGLOBIN 33.3 pg (26.0-34.0); MEAN CORPUSCULAR HGB CONC 33.4 G/dL (31.0-37.0); MEAN CORPUSCULAR VOLUME 100 fL (80-100); MONOCYTES # (AUTO) 0.6 K/uL (0.1-1.0); MONOCYTES % (AUTO) 8.6 % (2.0-9.0); NEUTROPHILS # (AUTO) 4.5 K/uL (1.8-7.7); PLATELET COUNT (AUTO) 202 K/uL (150-450); RED BLOOD CELL COUNT(AUTO) 4.44 MIL/uL (4.50-5.90)
[2021-01-12 10:05] LABS: ANION GAP 12 mmol/L (8-16); CALCIUM, TOTAL 7.3 mg/dL (8.8-10.5); CARBON DIOXIDE 27 mmol/L (22-29); CHLORIDE 108 mmol/L (98-107); CREATININE 0.77 mg/dL (0.60-1.30); GLOMERULAR FILTR. RATE CALC > 60 mL/min (>60); GLUCOSE,RANDOM 117 mg/dL (70-110); POTASSIUM 3.3 mmol/L (3.5-5.1); SODIUM SERUM 147 mmol/L (136-145); UREA NITROGEN, BLOOD 1 mg/dL (7-18)
[2021-01-12 10:16] LABS: ACETAMINOPHEN < 2 mcg/mL (10-30); ALANINE AMINOTRANSFERASE 72 U/L (12-78); ALBUMIN 3.3 g/dL (3.4-5.0); ALKALINE PHOSPHATASE 81 U/L (46-116); ASPARTATE AMINOTRANSFERASE 110 U/L (15-37); BILIRUBIN,TOTAL 0.1 mg/dL (0.1-1.0)
[2021-01-12] MEDS ORDERED: POTASSIUM CHLORIDE 20 MEQ ER TABLET PO ONE (10:30)
[2021-01-12 11:35] LABS: COVID AG,FIA SOURCE NASOPHARYNGEAL
[2021-01-12] MEDS ORDERED: HALOPERIDOL 5 MG TABLET PO PRN (12:30)
[2021-01-12] MEDS ORDERED: LORazepam 2 MG TABLET PO PRN (12:30)
[2021-01-12 14:46] LABS: AMPHET/METH SCREEN,URINE NEGATIVE (NEGATIVE); BARBITURATE SCREEN, URINE POSITIVE (NEGATIVE); BENZODIAZEPINES SCREEN,URINE NEGATIVE (NEGATIVE); CANNABINOID SCREEN,URINE NEGATIVE (NEGATIVE); COCAINE SCREEN,URINE NEGATIVE (NEGATIVE); METHADONE SCREEN, URINE NEGATIVE (NEGATIVE); OPIATE SCREEN,URINE NEGATIVE (NEGATIVE)
[2021-01-12 14:48] LABS: PHENCYCLIDINE SCREEN,URINE NEGATIVE (NEGATIVE)
[2021-01-12] MEDS ORDERED: DIAZEPAM 5 MG/ML 2 ML SYRINGE IVP ONE (18:15)
[2021-01-12] MEDS ORDERED: ONDANSETRON HCL 4 MG/2 ML VIAL IVP PRN (18:30)
[2021-01-12] MEDS ORDERED: ACETAMINOPHEN 325 MG TABLET PO PRN (18:30)
[2021-01-12] MEDS: 1: MAGNESIUM SULFATE 2 GM, MVI, ADULT NO.1 WITH VIT K 10 ML, THIAMINE 100 MG, FOLIC ACID IV SCH ×5 (20:05)
[2021-01-12] MEDS ORDERED: POTASSIUM CHL 10 MEQ/WATER 50 ML IV PRN (20:15)
[2021-01-12] MEDS ORDERED: POTASSIUM CHLORIDE 20 MEQ ER TABLET PO PRN (20:15)
[2021-01-12] MEDS: LORazepam 2 MG TABLET PO PRN (20:17)
[2021-01-12] MEDS: HEPARIN SODIUM,PORCINE 5,000 UNITS/ML VIAL SQ SCH (23:44)
[2021-01-13] MEDS: LORazepam 2 MG TABLET PO PRN (05:04)
[2021-01-13] MEDS: 1: MAGNESIUM SULFATE 2 GM, MVI, ADULT NO.1 WITH VIT K 10 ML, THIAMINE 100 MG, FOLIC ACID IV SCH ×5 (05:06)
[2021-01-13 06:29] LABS: BASOPHILS % (AUTO) 0.5 % (0.0-2.0); EOSINOPHILS % (AUTO) 1.5 % (1.0-6.0); HEMATOCRIT 40.5 % (41-53); HEMOGLOBIN 13.7 g/dL (13.5-17.5); LYMPHOCYTES # (AUTO) 1.3 K/uL (1.0-4.8); LYMPHOCYTES % (AUTO) 27.2 % (22.0-44.0); MEAN CORPUSCULAR HEMOGLOBIN 33.2 pg (26.0-34.0); MEAN CORPUSCULAR VOLUME 98 fL (80-100); MONOCYTES # (AUTO) 0.4 K/uL (0.1-1.0); MONOCYTES % (AUTO) 9.6 % (2.0-9.0); NEUTROPHILS # (AUTO) 2.8 K/uL (1.8-7.7); NEUTROPHILS % (AUTO) 61.2 % (40.0-70.0); PLATELET COUNT (AUTO) 173 K/uL (150-450); RED BLOOD CELL COUNT(AUTO) 4.14 MIL/uL (4.50-5.90); RED CELL DISTRIBUTION WIDTH 13.4 % (11.5-14.5)
[2021-01-13 06:42] LABS: ANION GAP 9 mmol/L (8-16); CALCIUM, TOTAL 8.2 mg/dL (8.8-10.5); CARBON DIOXIDE 28 mmol/L (22-29); CHLORIDE 100 mmol/L (98-107); CHOL/HDL RATIO 3.4 (4.2-7.3); CHOLESTEROL 141 mg/dL (131-200); CREATININE 0.75 mg/dL (0.60-1.30); GLOMERULAR FILTR. RATE CALC > 60 mL/min (>60); GLUCOSE,RANDOM 110 mg/dL (70-110); HDL CHOLESTEROL 42 mg/dL (40-60); LDL CHOL (CALC.) 77 mg/dL (0-130); SODIUM SERUM 137 mmol/L (136-145); TRIGLYCERIDES 108 mg/dL (15-150); UREA NITROGEN, BLOOD 4 mg/dL (7-18)
[2021-01-13] MEDS ORDERED: MAGNESIUM SULFATE 4 GM/WATER 100 ML IV PRN (07:00)
[2021-01-13] MEDS ORDERED: LORazepam 2 MG TABLET PO PRN (07:00)
[2021-01-13] MEDS ORDERED: MAGNESIUM SULFATE 2 GM/WATER 50 ML IV PRN (07:00)
[2021-01-13 08:52] VITALS: BP 146/97
[2021-01-13 09:09] LABS: ALBUMIN 3.1 g/dL (3.4-5.0)
[2021-01-13] MEDS ORDERED: SODIUM CHLORIDE 0.9% 1,000 ML ONE (10:19)
[2021-01-13] MEDS: HEPARIN SODIUM,PORCINE 5,000 UNITS/ML VIAL SQ SCH ×3 (10:56→23:56)
[2021-01-13] MEDS: LORazepam 2 MG TABLET PO SCH ×4 (10:57→20:54)
[2021-01-13] MEDS: SERTRALINE HCL 100 MG TABLET PO SCH (10:57)
[2021-01-13] MEDS: METOPROLOL TARTRATE 50 MG TABLET PO SCH ×2 (10:57→20:54)
[2021-01-13] MEDS: ACETAMINOPHEN 325 MG TABLET PO PRN (10:58)
[2021-01-13] MEDS: BusPIRone HCL 10 MG TABLET PO SCH ×3 (10:58→20:54)
[2021-01-13] MEDS: BICTEGRAV/EMTRICIT/TENOFOV ALA 50-200-25 MG TABLET PO SCH (10:58)
[2021-01-13] MEDS: LISINOPRIL 20 MG TABLET PO SCH (10:58)
[2021-01-13 12:00] VITALS: BP 126/83
[2021-01-13 15:37] VITALS: BP 155/101
[2021-01-13] MEDS: MAGNESIUM OXIDE 400 MG TABLET PO PRN ×2 (16:39→20:54)
[2021-01-13 19:30] VITALS: BP 134/89
[2021-01-13] MEDS: SIMVASTATIN 10 MG TABLET PO SCH (20:54)
[2021-01-13] MEDS: GABAPENTIN 300 MG CAPSULE PO SCH (20:54)
[2021-01-14] VITALS (7 sets, daily range): BP systolic 127–148; BP diastolic 81–99
[2021-01-14] MEDS: MAGNESIUM OXIDE 400 MG TABLET PO PRN (03:29)
[2021-01-14] MEDS ORDERED: SODIUM CHLORIDE 0.9% 1,000 ML ONE ×2 (08:24→22:20)
[2021-01-14] MEDS: BICTEGRAV/EMTRICIT/TENOFOV ALA 50-200-25 MG TABLET PO SCH (09:03)
[2021-01-14] MEDS: BusPIRone HCL 10 MG TABLET PO SCH ×3 (09:03→20:50)
[2021-01-14] MEDS: SERTRALINE HCL 100 MG TABLET PO SCH (09:03)
[2021-01-14] MEDS: LORazepam 2 MG TABLET PO SCH (09:03)
[2021-01-14] MEDS: LISINOPRIL 20 MG TABLET PO SCH (09:04)
[2021-01-14] MEDS: HEPARIN SODIUM,PORCINE 5,000 UNITS/ML VIAL SQ SCH ×3 (09:04→23:05)
[2021-01-14] MEDS: METOPROLOL TARTRATE 50 MG TABLET PO SCH ×2 (09:04→20:50)
[2021-01-14] MEDS: 1: MAGNESIUM SULFATE 2 GM, MVI, ADULT NO.1 WITH VIT K 10 ML, THIAMINE 100 MG, FOLIC ACID IV SCH ×15 (09:05→22:22)
[2021-01-14] MEDS ORDERED: LORazepam 2 MG/ML VIAL IVP PRN (10:45)
[2021-01-14] MEDS: SIMVASTATIN 10 MG TABLET PO SCH (20:50)
[2021-01-14] MEDS: ACETAMINOPHEN 325 MG TABLET PO PRN (20:50)
[2021-01-14] MEDS: GABAPENTIN 300 MG CAPSULE PO SCH (20:50)
[2021-01-14] MEDS: ZOLPIDEM TARTRATE 10 MG TABLET PO PRN (23:05)
[2021-01-15 05:45] VITALS: BP 149/102
[2021-01-15] MEDS: ACETAMINOPHEN 325 MG TABLET PO PRN (06:20)
[2021-01-15 06:51] LABS: ANION GAP 10 mmol/L (8-16); CALCIUM, TOTAL 8.4 mg/dL (8.8-10.5); CARBON DIOXIDE 27 mmol/L (22-29); CHLORIDE 102 mmol/L (98-107); CREATININE 0.76 mg/dL (0.60-1.30); GLOMERULAR FILTR. RATE CALC > 60 mL/min (>60); GLUCOSE,RANDOM 101 mg/dL (70-110); POTASSIUM 3.8 mmol/L (3.5-5.1); SODIUM SERUM 139 mmol/L (136-145); UREA NITROGEN, BLOOD 8 mg/dL (7-18)
[2021-01-15] MEDS ORDERED: LORazepam 1 MG TABLET PO PRN (07:00)
[2021-01-15 08:08] VITALS: BP 171/97
[2021-01-15] MEDS ORDERED: LORazepam 1 MG TABLET PO SCH (09:00)
[2021-01-15] MEDS: SERTRALINE HCL 100 MG TABLET PO SCH (10:05)
[2021-01-15] MEDS: BusPIRone HCL 10 MG TABLET PO SCH ×3 (10:05→21:06)
[2021-01-15] MEDS: HEPARIN SODIUM,PORCINE 5,000 UNITS/ML VIAL SQ SCH ×3 (10:05→23:35)
[2021-01-15] MEDS: BICTEGRAV/EMTRICIT/TENOFOV ALA 50-200-25 MG TABLET PO SCH (10:05)
[2021-01-15] MEDS: METOPROLOL TARTRATE 50 MG TABLET PO SCH ×2 (10:06→21:06)
[2021-01-15] MEDS: LISINOPRIL 20 MG TABLET PO SCH (10:06)
[2021-01-15] MEDS: 1: MAGNESIUM SULFATE 2 GM, MVI, ADULT NO.1 WITH VIT K 10 ML, THIAMINE 100 MG, FOLIC ACID IV SCH ×5 (10:36)
[2021-01-15 12:02] VITALS: BP 144/93
[2021-01-15 16:00] VITALS: BP 120/87
[2021-01-15 19:47] VITALS: BP 148/86
[2021-01-15] MEDS: ZOLPIDEM TARTRATE 10 MG TABLET PO PRN (21:06)
[2021-01-15] MEDS: GABAPENTIN 300 MG CAPSULE PO SCH (21:06)
[2021-01-15] MEDS: SIMVASTATIN 10 MG TABLET PO SCH (21:06)
[2021-01-16 00:07] VITALS: BP 129/55
[2021-01-16 05:56] VITALS: BP 119/54
[2021-01-16] MEDS ORDERED: LORazepam 1 MG TABLET PO PRN (07:00)
[2021-01-16 07:39] VITALS: BP 104/72
[2021-01-16] MEDS: METOPROLOL TARTRATE 50 MG TABLET PO SCH (09:00)
[2021-01-16 09:16] VITALS: BP 112/71
[2021-01-16] MEDS: SERTRALINE HCL 100 MG TABLET PO SCH (09:22)
[2021-01-16] MEDS: HEPARIN SODIUM,PORCINE 5,000 UNITS/ML VIAL SQ SCH ×2 (09:22→16:00)
[2021-01-16] MEDS: BusPIRone HCL 10 MG TABLET PO SCH ×2 (09:23→16:00)
[2021-01-16 10:57] VITALS: BP 122/83
[2021-01-16] MEDS: LISINOPRIL 20 MG TABLET PO SCH (11:22)
[2021-01-16] MEDS: BICTEGRAV/EMTRICIT/TENOFOV ALA 50-200-25 MG TABLET PO SCH (11:22)
[2021-01-16 11:55] LABS: COVID AG,FIA SOURCE NASAL SWAB
[2021-01-16 15:51] VITALS: BP 130/85
[2021-01-16] MEDS ORDERED: HALO5TAB2 PO (16:34)
== END 2021-01-16 19:23 | DRG 817 ==
LOC: EMS 09:02 → B3A 17:17 → UNDOADMIN 17:17 → 5S 01-13 06:13
PROVIDERS: ADMIT Psychiatry & Neurology Child & Adolescent Psychiatry; ATTEND Psychiatry & Neurology Child & Adolescent Psychiatry
DX: T43.012A Poisoning by tricyclic antidepressants, intentional self-harm, initial encounter (principal); G92.8 Other toxic encephalopathy; B20 Human immunodeficiency virus [HIV] disease; E87.1 Hypo-osmolality and hyponatremia; E87.6 Hypokalemia; I10 Essential (primary) hypertension; Z20.822 Contact with and (suspected) exposure to COVID-19; F43.10 Post-traumatic stress disorder, unspecified; Y90.9 Presence of alcohol in blood, level not specified; F31.9 Bipolar disorder, unspecified; F10.939 Alcohol use, unspecified with withdrawal, unspecified; E78.5 Hyperlipidemia, unspecified; Y92.89 Other specified places as the place of occurrence of the external cause; Z86.16 Personal history of COVID-19; Z79.899 Other long term (current) drug therapy; Z83.3 Family history of diabetes mellitus; Z91.51 Personal history of suicidal behavior; Z82.49 Family history of ischemic heart disease and other diseases of the circulatory system
CPT/HCPCS: 80048; 80053; 80061; 82040; 83735; 84132; 85025; 93005; 99285; G0480; G0481; J1644; J3411; J3475; J3490; J7030; Q9967

== ENCOUNTER 2021-01-16 20:05 | Inpatient (IN) | payer MEDICAID, OTHER ==
[~2021-01-16] VITALS: Ht 175.3 cm; Wt 90.7 kg
[~2021-01-16 20:05] MED LIST changes: +HALO5TAB2 PO
[2021-01-16 21:00] VITALS: BP 140/100
[2021-01-16] MEDS: LORazepam 1 MG TABLET PO PRN (21:48)
[2021-01-16] MEDS: HALOPERIDOL 5 MG TABLET PO PRN (21:48)
[2021-01-16] MEDS ORDERED: BICTEGRAV/EMTRICIT/TENOFOV ALA 50-200-25 MG TABLET PO ONE (22:00)
[2021-01-16] MEDS: ZOLPIDEM TARTRATE 10 MG TABLET PO PRN (22:43)
[2021-01-17 01:35] VITALS: BP 138/88
[2021-01-17 08:21] VITALS: BP 115/64
[2021-01-17] MEDS: BusPIRone HCL 10 MG TABLET PO SCH ×3 (08:33→16:13)
[2021-01-17] MEDS: SERTRALINE HCL 100 MG TABLET PO SCH (08:33)
[2021-01-17] MEDS: LISINOPRIL 20 MG TABLET PO SCH (08:33)
[2021-01-17] MEDS: METOPROLOL TARTRATE 50 MG TABLET PO SCH ×2 (08:33→16:13)
[2021-01-17] MEDS ORDERED: LOPERAMIDE HCL 2 MG CAPSULE PO PRN (09:30)
[2021-01-17] MEDS ORDERED: CloNIDine HCL 0.1 MG TABLET PO PRN (09:30)
[2021-01-17] MEDS ORDERED: ONDANSETRON HCL 4 MG TABLET PO PRN (09:30)
[2021-01-17] MEDS ORDERED: MAG HYDROX/AL HYDROX/SIMETH ES 30 ML SUSPENSION UDCUP PO PRN (09:30)
[2021-01-17] MEDS ORDERED: PETROLATUM,WHITE 28 GM JELLY TP PRN (09:30)
[2021-01-17] MEDS ORDERED: GuaiFENesin/D-METHORPHAN [SUGAR-FREE] 200-20MG/10 ML SYRUP UDCUP PO PRN (09:30)
[2021-01-17] MEDS ORDERED: ACETAMINOPHEN 325 MG TABLET PO PRN (09:30)
[2021-01-17] MEDS ORDERED: MAGNESIUM HYDROXIDE SUSPENSION 30 ML UDCUP PO PRN (09:30)
[2021-01-17] MEDS ORDERED: IBUPROFEN 400 MG TABLET PO PRN (09:30)
[2021-01-17] MEDS ORDERED: NICOTINE 14 MG/24 HOUR PATCH TD PRN (09:30)
[2021-01-17] MEDS ORDERED: DOCUSATE SODIUM 100 MG CAPSULE PO PRN (09:30)
[2021-01-17] MEDS ORDERED: ALBUTEROL SULFATE HFA 90 MCG/PUFF 8 GM INHALER IH PRN (09:30)
[2021-01-17] MEDS: BICTEGRAV/EMTRICIT/TENOFOV ALA 50-200-25 MG TABLET PO SCH (09:43)
[2021-01-17] MEDS: HALOPERIDOL 5 MG TABLET PO PRN ×2 (10:24→17:21)
[2021-01-17] MEDS: LORazepam 1 MG TABLET PO PRN ×2 (10:24→17:21)
[2021-01-17 16:20] VITALS: BP 122/81
[2021-01-17] MEDS: GABAPENTIN 300 MG CAPSULE PO SCH (20:03)
[2021-01-17] MEDS: SIMVASTATIN 10 MG TABLET PO SCH (20:03)
[2021-01-17] MEDS: ZOLPIDEM TARTRATE 10 MG TABLET PO PRN (20:37)
[2021-01-17] MEDS ORDERED: SIMVASTATIN 10 MG TABLET PO SCH (21:00)
[2021-01-18 00:41] VITALS: BP 119/82
[2021-01-18 08:18] VITALS: BP 103/65
[2021-01-18 08:56] VITALS: BP 114/76
[2021-01-18] MEDS ORDERED: BICTEGRAV/EMTRICIT/TENOFOV ALA 50-200-25 MG TABLET PO SCH (09:00)
[2021-01-18] MEDS: BICTEGRAV/EMTRICIT/TENOFOV ALA 50-200-25 MG TABLET PO SCH (09:10)
[2021-01-18] MEDS: BusPIRone HCL 10 MG TABLET PO SCH ×3 (09:10→16:11)
[2021-01-18] MEDS: METOPROLOL TARTRATE 50 MG TABLET PO SCH ×2 (09:10→16:11)
[2021-01-18] MEDS: LISINOPRIL 20 MG TABLET PO SCH (09:10)
[2021-01-18] MEDS: SERTRALINE HCL 100 MG TABLET PO SCH (09:10)
[2021-01-18] MEDS: HALOPERIDOL 5 MG TABLET PO PRN (16:11)
[2021-01-18 16:16] VITALS: BP 113/72
[2021-01-18] MEDS: LORazepam 1 MG TABLET PO PRN (17:33)
[2021-01-18] MEDS: SIMVASTATIN 10 MG TABLET PO SCH (20:13)
[2021-01-18] MEDS: GABAPENTIN 300 MG CAPSULE PO SCH (20:13)
[2021-01-18] MEDS: ZOLPIDEM TARTRATE 10 MG TABLET PO PRN (20:33)
[2021-01-19 01:03] VITALS: BP 116/77
[2021-01-19 08:12] VITALS: BP 140/90
[2021-01-19] MEDS: METOPROLOL TARTRATE 50 MG TABLET PO SCH ×2 (08:59→16:38)
[2021-01-19] MEDS: BusPIRone HCL 10 MG TABLET PO SCH ×3 (08:59→16:38)
[2021-01-19] MEDS: LISINOPRIL 20 MG TABLET PO SCH (09:00)
[2021-01-19] MEDS: BICTEGRAV/EMTRICIT/TENOFOV ALA 50-200-25 MG TABLET PO SCH (09:00)
[2021-01-19] MEDS: SERTRALINE HCL 100 MG TABLET PO SCH (09:00)
[2021-01-19] MEDS: HALOPERIDOL 5 MG TABLET PO PRN ×2 (11:20→19:07)
[2021-01-19] MEDS: LORazepam 1 MG TABLET PO PRN ×2 (11:20→19:07)
[2021-01-19 16:17] VITALS: BP 111/88
[2021-01-19] MEDS: GABAPENTIN 300 MG CAPSULE PO SCH (20:38)
[2021-01-19] MEDS: SIMVASTATIN 10 MG TABLET PO SCH (20:38)
[2021-01-19] MEDS: ZOLPIDEM TARTRATE 10 MG TABLET PO PRN (21:09)
[2021-01-20 03:00] VITALS: BP 118/78
[2021-01-20 08:31] VITALS: BP 114/78
[2021-01-20] MEDS: BICTEGRAV/EMTRICIT/TENOFOV ALA 50-200-25 MG TABLET PO SCH (09:33)
[2021-01-20] MEDS: METOPROLOL TARTRATE 50 MG TABLET PO SCH ×2 (09:33→17:05)
[2021-01-20] MEDS: LISINOPRIL 20 MG TABLET PO SCH (09:33)
[2021-01-20] MEDS: SERTRALINE HCL 100 MG TABLET PO SCH (09:34)
[2021-01-20] MEDS: BusPIRone HCL 10 MG TABLET PO SCH ×3 (09:34→17:05)
[2021-01-20] MEDS: HALOPERIDOL 5 MG TABLET PO PRN ×2 (11:43→18:21)
[2021-01-20] MEDS: LORazepam 1 MG TABLET PO PRN ×2 (11:44→18:21)
[2021-01-20 16:19] VITALS: BP 108/65
[2021-01-20] MEDS: SIMVASTATIN 10 MG TABLET PO SCH (20:37)
[2021-01-20] MEDS: ZOLPIDEM TARTRATE 10 MG TABLET PO PRN (20:37)
[2021-01-20] MEDS: GABAPENTIN 300 MG CAPSULE PO SCH (20:37)
[2021-01-21 01:45] VITALS: BP 116/73
[2021-01-21 07:44] LABS: COVID AG,FIA SOURCE NASOPHARYNGEAL
[2021-01-21 08:22] VITALS: BP 100/60
[2021-01-21] MEDS: BICTEGRAV/EMTRICIT/TENOFOV ALA 50-200-25 MG TABLET PO SCH (08:26)
[2021-01-21] MEDS: BusPIRone HCL 10 MG TABLET PO SCH ×3 (08:26→16:52)
[2021-01-21] MEDS: LISINOPRIL 20 MG TABLET PO SCH (08:26)
[2021-01-21] MEDS: SERTRALINE HCL 100 MG TABLET PO SCH (08:27)
[2021-01-21] MEDS: METOPROLOL TARTRATE 50 MG TABLET PO SCH ×2 (08:27→17:23)
[2021-01-21] MEDS: HALOPERIDOL 5 MG TABLET PO PRN ×2 (12:47→17:36)
[2021-01-21] MEDS: LORazepam 1 MG TABLET PO PRN ×2 (12:47→19:29)
[2021-01-21 16:21] VITALS: BP 106/69
[2021-01-21 17:23] VITALS: BP 116/75
[2021-01-21] MEDS: GABAPENTIN 300 MG CAPSULE PO SCH (20:36)
[2021-01-21] MEDS: SIMVASTATIN 10 MG TABLET PO SCH (20:36)
[2021-01-21] MEDS: OLANZapine 5 MG TABLET PO SCH (20:36)
[2021-01-21] MEDS: ZOLPIDEM TARTRATE 10 MG TABLET PO PRN (20:37)
[2021-01-22 00:44] VITALS: BP 115/77
[2021-01-22 08:41] VITALS: BP 96/55
[2021-01-22] MEDS: SERTRALINE HCL 100 MG TABLET PO SCH (09:07)
[2021-01-22] MEDS: BusPIRone HCL 10 MG TABLET PO SCH ×3 (09:07→16:08)
[2021-01-22] MEDS: LISINOPRIL 20 MG TABLET PO SCH (09:07)
[2021-01-22] MEDS: METOPROLOL TARTRATE 50 MG TABLET PO SCH ×2 (09:07→16:11)
[2021-01-22] MEDS: BICTEGRAV/EMTRICIT/TENOFOV ALA 50-200-25 MG TABLET PO SCH (09:31)
[2021-01-22] MEDS: HALOPERIDOL 5 MG TABLET PO PRN (16:09)
[2021-01-22 16:22] VITALS: BP 97/61
[2021-01-22] MEDS: LORazepam 1 MG TABLET PO PRN (19:54)
[2021-01-22] MEDS: GABAPENTIN 300 MG CAPSULE PO SCH (21:02)
[2021-01-22] MEDS: OLANZapine 5 MG TABLET PO SCH (21:02)
[2021-01-22] MEDS: SIMVASTATIN 10 MG TABLET PO SCH (21:02)
[2021-01-22] MEDS: ZOLPIDEM TARTRATE 10 MG TABLET PO PRN (21:03)
[2021-01-23 00:10] VITALS: BP 102/61
[2021-01-23 08:21] VITALS: BP 111/65
[2021-01-23] MEDS: BICTEGRAV/EMTRICIT/TENOFOV ALA 50-200-25 MG TABLET PO SCH (08:27)
[2021-01-23] MEDS: METOPROLOL TARTRATE 50 MG TABLET PO SCH ×2 (08:27→16:29)
[2021-01-23] MEDS: SERTRALINE HCL 100 MG TABLET PO SCH (08:28)
[2021-01-23] MEDS: LISINOPRIL 20 MG TABLET PO SCH (08:28)
[2021-01-23] MEDS: BusPIRone HCL 10 MG TABLET PO SCH ×3 (08:28→16:29)
[2021-01-23] MEDS: HALOPERIDOL 5 MG TABLET PO PRN (13:03)
[2021-01-23 16:14] VITALS: BP 123/71
[2021-01-23] MEDS: SIMVASTATIN 10 MG TABLET PO SCH (20:03)
[2021-01-23] MEDS: GABAPENTIN 300 MG CAPSULE PO SCH (20:03)
[2021-01-23] MEDS: OLANZapine 5 MG TABLET PO SCH (20:03)
[2021-01-23] MEDS: ZOLPIDEM TARTRATE 10 MG TABLET PO PRN (20:51)
[2021-01-24 05:34] VITALS: BP 105/64
[2021-01-24 08:13] VITALS: BP 121/79
[2021-01-24] MEDS: BICTEGRAV/EMTRICIT/TENOFOV ALA 50-200-25 MG TABLET PO SCH (08:23)
[2021-01-24] MEDS: METOPROLOL TARTRATE 50 MG TABLET PO SCH ×2 (08:23→16:37)
[2021-01-24] MEDS: BusPIRone HCL 10 MG TABLET PO SCH ×3 (08:23→16:37)
[2021-01-24] MEDS: SERTRALINE HCL 100 MG TABLET PO SCH (08:23)
[2021-01-24] MEDS: MULTIVITAMINS WITH MINERALS, THERAPEUTIC TABLET PO SCH (08:23)
[2021-01-24] MEDS: LISINOPRIL 20 MG TABLET PO SCH (08:23)
[2021-01-24] MEDS: HALOPERIDOL 5 MG TABLET PO PRN ×2 (12:47→17:23)
[2021-01-24] MEDS: LORazepam 1 MG TABLET PO PRN ×2 (14:05→19:33)
[2021-01-24 16:18] VITALS: BP 121/72
[2021-01-24] MEDS: GABAPENTIN 300 MG CAPSULE PO SCH (20:31)
[2021-01-24] MEDS: OLANZapine 5 MG TABLET PO SCH (20:31)
[2021-01-24] MEDS: SIMVASTATIN 10 MG TABLET PO SCH (20:31)
[2021-01-24] MEDS: ZOLPIDEM TARTRATE 10 MG TABLET PO PRN (21:27)
[2021-01-25 06:17] VITALS: BP 103/67
[2021-01-25 08:21] VITALS: BP 113/66
[2021-01-25] MEDS: MULTIVITAMINS WITH MINERALS, THERAPEUTIC TABLET PO SCH (09:09)
[2021-01-25] MEDS: SERTRALINE HCL 100 MG TABLET PO SCH (09:09)
[2021-01-25] MEDS: LISINOPRIL 20 MG TABLET PO SCH (09:09)
[2021-01-25] MEDS: BusPIRone HCL 10 MG TABLET PO SCH ×3 (09:10→16:25)
[2021-01-25] MEDS: METOPROLOL TARTRATE 50 MG TABLET PO SCH ×2 (09:10→16:25)
[2021-01-25] MEDS: BICTEGRAV/EMTRICIT/TENOFOV ALA 50-200-25 MG TABLET PO SCH (09:10)
[2021-01-25] MEDS: LORazepam 1 MG TABLET PO PRN ×2 (13:53→18:47)
[2021-01-25 16:24] VITALS: BP 116/74
[2021-01-25] MEDS: HALOPERIDOL 5 MG TABLET PO PRN (16:24)
[2021-01-25] MEDS: SIMVASTATIN 10 MG TABLET PO SCH (20:21)
[2021-01-25] MEDS: GABAPENTIN 300 MG CAPSULE PO SCH (20:21)
[2021-01-25] MEDS: ZOLPIDEM TARTRATE 10 MG TABLET PO PRN (20:21)
[2021-01-25] MEDS: OLANZapine 10 MG TABLET PO SCH (20:21)
[2021-01-26 05:40] VITALS: BP 108/62
[2021-01-26 08:31] VITALS: BP 118/75
[2021-01-26] MEDS: BICTEGRAV/EMTRICIT/TENOFOV ALA 50-200-25 MG TABLET PO SCH (08:49)
[2021-01-26] MEDS: LISINOPRIL 20 MG TABLET PO SCH (08:49)
[2021-01-26] MEDS: BusPIRone HCL 10 MG TABLET PO SCH ×3 (08:50→17:01)
[2021-01-26] MEDS: SERTRALINE HCL 100 MG TABLET PO SCH (08:50)
[2021-01-26] MEDS: MULTIVITAMINS WITH MINERALS, THERAPEUTIC TABLET PO SCH (08:51)
[2021-01-26] MEDS: METOPROLOL TARTRATE 50 MG TABLET PO SCH ×2 (08:51→17:01)
[2021-01-26] MEDS: HALOPERIDOL 5 MG TABLET PO PRN (13:42)
[2021-01-26 16:19] VITALS: BP 106/68
[2021-01-26 17:01] VITALS: BP 133/84
[2021-01-26] MEDS: LORazepam 1 MG TABLET PO PRN (17:48)
[2021-01-26] MEDS: SIMVASTATIN 10 MG TABLET PO SCH (20:18)
[2021-01-26] MEDS: ZOLPIDEM TARTRATE 10 MG TABLET PO PRN (20:18)
[2021-01-26] MEDS: OLANZapine 10 MG TABLET PO SCH (20:18)
[2021-01-26] MEDS: GABAPENTIN 300 MG CAPSULE PO SCH (20:18)
[2021-01-27 01:13] VITALS: BP 127/79
[2021-01-27 06:52] LABS: COVID AG,FIA SOURCE NASOPHARYNGEAL
[2021-01-27 08:26] VITALS: BP 123/70
[2021-01-27] MEDS: METOPROLOL TARTRATE 50 MG TABLET PO SCH ×2 (08:59→16:30)
[2021-01-27] MEDS: BusPIRone HCL 10 MG TABLET PO SCH ×3 (08:59→16:30)
[2021-01-27] MEDS: BICTEGRAV/EMTRICIT/TENOFOV ALA 50-200-25 MG TABLET PO SCH (08:59)
[2021-01-27] MEDS: LISINOPRIL 20 MG TABLET PO SCH (09:00)
[2021-01-27] MEDS: MULTIVITAMINS WITH MINERALS, THERAPEUTIC TABLET PO SCH (09:00)
[2021-01-27] MEDS: SERTRALINE HCL 100 MG TABLET PO SCH (09:00)
[2021-01-27] MEDS: HALOPERIDOL 5 MG TABLET PO PRN (13:12)
[2021-01-27] MEDS: LORazepam 1 MG TABLET PO PRN (14:42)
[2021-01-27 16:27] VITALS: BP 111/70
[2021-01-27] MEDS: SIMVASTATIN 10 MG TABLET PO SCH (20:47)
[2021-01-27] MEDS: OLANZapine 10 MG TABLET PO SCH (20:47)
[2021-01-27] MEDS: GABAPENTIN 300 MG CAPSULE PO SCH (20:47)
[2021-01-27] MEDS: ZOLPIDEM TARTRATE 10 MG TABLET PO PRN (20:51)
[2021-01-28 06:15] VITALS: BP 126/71
[2021-01-28 08:34] VITALS: BP 109/60
[2021-01-28] MEDS: METOPROLOL TARTRATE 50 MG TABLET PO SCH ×2 (08:57→16:09)
[2021-01-28] MEDS: BICTEGRAV/EMTRICIT/TENOFOV ALA 50-200-25 MG TABLET PO SCH (08:57)
[2021-01-28] MEDS: MULTIVITAMINS WITH MINERALS, THERAPEUTIC TABLET PO SCH (08:59)
[2021-01-28] MEDS: BusPIRone HCL 10 MG TABLET PO SCH ×3 (08:59→16:09)
[2021-01-28] MEDS: SERTRALINE HCL 100 MG TABLET PO SCH (08:59)
[2021-01-28] MEDS: LISINOPRIL 20 MG TABLET PO SCH (08:59)
[2021-01-28] MEDS: HALOPERIDOL 5 MG TABLET PO PRN (12:27)
[2021-01-28 16:15] VITALS: BP 128/73
[2021-01-28] MEDS: LORazepam 1 MG TABLET PO PRN (17:28)
[2021-01-28] MEDS: TraZODone HCL 150 MG TABLET PO SCH (20:20)
[2021-01-28] MEDS: OLANZapine 10 MG TABLET PO SCH (20:20)
[2021-01-28] MEDS: GABAPENTIN 300 MG CAPSULE PO SCH (20:20)
[2021-01-28] MEDS: SIMVASTATIN 10 MG TABLET PO SCH (20:20)
[2021-01-29 01:36] VITALS: BP 118/77
[2021-01-29 08:37] VITALS: BP 107/65
[2021-01-29] MEDS: LISINOPRIL 20 MG TABLET PO SCH (09:35)
[2021-01-29] MEDS: MULTIVITAMINS WITH MINERALS, THERAPEUTIC TABLET PO SCH (09:35)
[2021-01-29] MEDS: METOPROLOL TARTRATE 50 MG TABLET PO SCH ×2 (09:35→16:32)
[2021-01-29] MEDS: BICTEGRAV/EMTRICIT/TENOFOV ALA 50-200-25 MG TABLET PO SCH (09:35)
[2021-01-29] MEDS: SERTRALINE HCL 100 MG TABLET PO SCH (09:35)
[2021-01-29] MEDS: BusPIRone HCL 10 MG TABLET PO SCH ×3 (10:22→16:33)
[2021-01-29] MEDS: HALOPERIDOL 5 MG TABLET PO PRN ×2 (12:28→17:39)
[2021-01-29] MEDS: LORazepam 1 MG TABLET PO PRN ×2 (14:49→19:28)
[2021-01-29 16:17] VITALS: BP 116/73
[2021-01-29] MEDS: OLANZapine 10 MG TABLET PO SCH (20:23)
[2021-01-29] MEDS: SIMVASTATIN 10 MG TABLET PO SCH (20:23)
[2021-01-29] MEDS: TraZODone HCL 150 MG TABLET PO SCH (20:23)
[2021-01-29] MEDS: GABAPENTIN 300 MG CAPSULE PO SCH (20:23)
[2021-01-30 01:12] VITALS: BP 118/67
[2021-01-30] MEDS: MULTIVITAMINS WITH MINERALS, THERAPEUTIC TABLET PO SCH (08:02)
[2021-01-30] MEDS: LISINOPRIL 20 MG TABLET PO SCH (08:02)
[2021-01-30] MEDS: BICTEGRAV/EMTRICIT/TENOFOV ALA 50-200-25 MG TABLET PO SCH (08:02)
[2021-01-30] MEDS: METOPROLOL TARTRATE 50 MG TABLET PO SCH ×2 (08:03→16:34)
[2021-01-30] MEDS: SERTRALINE HCL 100 MG TABLET PO SCH (08:04)
[2021-01-30] MEDS: BusPIRone HCL 10 MG TABLET PO SCH ×3 (08:04→16:34)
[2021-01-30 08:13] VITALS: BP 100/53
[2021-01-30] MEDS: HALOPERIDOL 5 MG TABLET PO PRN (12:30)
[2021-01-30 16:25] VITALS: BP 117/68
[2021-01-30] MEDS: LORazepam 1 MG TABLET PO PRN (17:45)
[2021-01-30] MEDS: OLANZapine 10 MG TABLET PO SCH (20:04)
[2021-01-30] MEDS: GABAPENTIN 300 MG CAPSULE PO SCH (20:04)
[2021-01-30] MEDS: SIMVASTATIN 10 MG TABLET PO SCH (20:04)
[2021-01-30] MEDS: TraZODone HCL 150 MG TABLET PO SCH (20:04)
[2021-01-31 00:59] VITALS: BP 120/88
[2021-01-31 08:13] VITALS: BP_SYST 105; BP_SYST 116; BP_DIAS 61; BP_DIAS 67
[2021-01-31] MEDS: SERTRALINE HCL 100 MG TABLET PO SCH (09:58)
[2021-01-31] MEDS: METOPROLOL TARTRATE 50 MG TABLET PO SCH ×2 (09:59→17:22)
[2021-01-31] MEDS: BICTEGRAV/EMTRICIT/TENOFOV ALA 50-200-25 MG TABLET PO SCH (09:59)
[2021-01-31] MEDS: LISINOPRIL 20 MG TABLET PO SCH (09:59)
[2021-01-31] MEDS: MULTIVITAMINS WITH MINERALS, THERAPEUTIC TABLET PO SCH (09:59)
[2021-01-31] MEDS: BusPIRone HCL 10 MG TABLET PO SCH ×3 (09:59→17:22)
[2021-01-31] MEDS: HALOPERIDOL 5 MG TABLET PO PRN ×2 (12:33→17:35)
[2021-01-31] MEDS: LORazepam 1 MG TABLET PO PRN ×2 (14:27→19:45)
[2021-01-31 16:32] VITALS: BP 100/60
[2021-01-31 17:22] VITALS: BP 118/72
[2021-01-31] MEDS: TraZODone HCL 150 MG TABLET PO SCH (20:47)
[2021-01-31] MEDS: OLANZapine 10 MG TABLET PO SCH (20:48)
[2021-01-31] MEDS: SIMVASTATIN 10 MG TABLET PO SCH (20:48)
[2021-01-31] MEDS: GABAPENTIN 300 MG CAPSULE PO SCH (20:48)
[2021-02-01 01:09] VITALS: BP 106/67
[2021-02-01] MEDS: BICTEGRAV/EMTRICIT/TENOFOV ALA 50-200-25 MG TABLET PO SCH (08:05)
[2021-02-01] MEDS: LISINOPRIL 20 MG TABLET PO SCH (08:05)
[2021-02-01] MEDS: SERTRALINE HCL 100 MG TABLET PO SCH (08:05)
[2021-02-01] MEDS: METOPROLOL TARTRATE 50 MG TABLET PO SCH ×2 (08:05→16:53)
[2021-02-01] MEDS: MULTIVITAMINS WITH MINERALS, THERAPEUTIC TABLET PO SCH (08:05)
[2021-02-01] MEDS: BusPIRone HCL 10 MG TABLET PO SCH ×3 (08:05→16:53)
[2021-02-01 08:39] VITALS: BP 131/83
[2021-02-01] MEDS: HALOPERIDOL 5 MG TABLET PO PRN ×2 (13:17→19:43)
[2021-02-01 16:31] VITALS: BP 106/63
[2021-02-01 16:53] VITALS: BP 127/79
[2021-02-01] MEDS: LORazepam 1 MG TABLET PO PRN (18:05)
[2021-02-01] MEDS: TraZODone HCL 150 MG TABLET PO SCH (20:13)
[2021-02-01] MEDS: OLANZapine 10 MG TABLET PO SCH (20:14)
[2021-02-01] MEDS: SIMVASTATIN 10 MG TABLET PO SCH (20:14)
[2021-02-01] MEDS: GABAPENTIN 300 MG CAPSULE PO SCH (20:14)
[2021-02-02 01:07] VITALS: BP 119/75
[2021-02-02] MEDS ORDERED: OLAN10TA74 PO (08:00)
[2021-02-02] MEDS ORDERED: SERT-162 PO (08:00)
[2021-02-02] MEDS ORDERED: TRAZ150T80 PO (08:01)
[2021-02-02] MEDS: METOPROLOL TARTRATE 50 MG TABLET PO SCH (09:00)
[2021-02-02 09:03] VITALS: BP 104/67
[2021-02-02] MEDS: MULTIVITAMINS WITH MINERALS, THERAPEUTIC TABLET PO SCH (09:09)
[2021-02-02] MEDS: LISINOPRIL 20 MG TABLET PO SCH (09:09)
[2021-02-02] MEDS: SERTRALINE HCL 100 MG TABLET PO SCH (09:09)
[2021-02-02] MEDS: BICTEGRAV/EMTRICIT/TENOFOV ALA 50-200-25 MG TABLET PO SCH (09:10)
[2021-02-02] MEDS: BusPIRone HCL 10 MG TABLET PO SCH (09:10)
[2021-02-02 10:56] LABS: GLUCOMETER DEV NAME(LOC) POC.BV
== END 2021-02-02 09:20 | disposition home or self-care (01) | DRG 751 ==
LOC: B2S 20:46
PROVIDERS: ADMIT Psychiatry & Neurology Child & Adolescent Psychiatry; ATTEND Psychiatry & Neurology Child & Adolescent Psychiatry
DX: F33.3 Major depressive disorder, recurrent, severe with psychotic symptoms (principal); B18.2 Chronic viral hepatitis C; E78.5 Hyperlipidemia, unspecified; Z59.00 Homelessness unspecified; F41.9 Anxiety disorder, unspecified; I10 Essential (primary) hypertension; F10.10 Alcohol abuse, uncomplicated; Y90.9 Presence of alcohol in blood, level not specified; Z20.822 Contact with and (suspected) exposure to COVID-19
CPT/HCPCS: 87081; Q9967; Z7610

== ENCOUNTER 2021-03-06 01:30 | Emergency (ER) | payer MEDICAID, OTHER ==
[~2021-03-06 01:30] MED LIST changes: -HALO5TAB2 PO; +OLAN10TA74 PO; +TRAZ150T80 PO
== END 2021-03-06 04:04 | disposition left against medical advice (07) ==
LOC: EMS 01:31
DX: Z53.21 Procedure and treatment not carried out due to patient leaving prior to being seen by health care provider (principal)

== ENCOUNTER 2021-03-23 12:34 | Emergency (ER) | payer MEDICAID, OTHER ==
[~2021-03-23] VITALS: Ht 175.3 cm; Wt 207.1 kg
[2021-03-23 13:59] LABS: BASOPHILS % (AUTO) 1.3 % (0.0-2.0); EOSINOPHILS % (AUTO) 0.5 % (1.0-6.0); LYMPHOCYTES # (AUTO) 2.4 K/uL (1.0-4.8); LYMPHOCYTES % (AUTO) 58.9 % (22.0-44.0); MEAN CORPUSCULAR HEMOGLOBIN 33.3 pg (26.0-34.0); MEAN CORPUSCULAR HGB CONC 34.1 G/dL (31.0-37.0); MEAN CORPUSCULAR VOLUME 98 fL (80-100); MONOCYTES # (AUTO) 0.4 K/uL (0.1-1.0); MONOCYTES % (AUTO) 9.8 % (2.0-9.0); NEUTROPHILS # (AUTO) 1.2 K/uL (1.8-7.7); NEUTROPHILS % (AUTO) 29.5 % (40.0-70.0); PLATELET COUNT (AUTO) 337 K/uL (150-450); RED BLOOD CELL COUNT(AUTO) 4.19 MIL/uL (4.50-5.90); RED CELL DISTRIBUTION WIDTH 13.9 % (11.5-14.5)
[2021-03-23 14:07] LABS: ANION GAP 9 mmol/L (8-16); CALCIUM, TOTAL 7.4 mg/dL (8.8-10.5); CARBON DIOXIDE 25 mmol/L (22-29); CHLORIDE 113 mmol/L (98-107); GLOMERULAR FILTR. RATE CALC > 60 mL/min (>60); GLUCOSE,RANDOM 112 mg/dL (70-110); POTASSIUM 3.9 mmol/L (3.5-5.1); SODIUM SERUM 147 mmol/L (136-145); UREA NITROGEN, BLOOD 4 mg/dL (7-18)
[2021-03-23 14:13] LABS: ALANINE AMINOTRANSFERASE 81 U/L (12-78); ALBUMIN 3.4 g/dL (3.4-5.0); ALKALINE PHOSPHATASE 83 U/L (46-116); ASPARTATE AMINOTRANSFERASE 66 U/L (15-37); BILIRUBIN,TOTAL 0.2 mg/dL (0.1-1.0); TOTAL PROTEIN, SERUM 7.1 g/dL (6.4-8.2)
[2021-03-23] MEDS ORDERED: ONDANSETRON HCL 4 MG TABLET PO ONE (16:00)
[2021-03-23 18:13] VITALS: BP 131/93
== END 2021-03-23 19:25 | disposition home or self-care (01) ==
LOC: EMS 12:34
DX: F10.129 Alcohol abuse with intoxication, unspecified (principal); Y90.8 Blood alcohol level of 240 mg/100 ml or more
CPT/HCPCS: 36415; 80053; 85025; 99283; G0480; Q0162

== ENCOUNTER 2021-03-24 14:55 | Emergency (ER) | payer MEDICAID ==
[~2021-03-24] VITALS: Ht 167.6 cm; Wt 90.9 kg
[2021-03-24 15:24] VITALS: BP 152/118
== END 2021-03-24 18:08 | disposition left against medical advice (07) ==
LOC: EMS 14:59
DX: R07.89 Other chest pain (principal); Z53.21 Procedure and treatment not carried out due to patient leaving prior to being seen by health care provider
CPT/HCPCS: 93005

== ENCOUNTER 2022-04-03 20:05 | Emergency (ER) | payer MEDICAID | END 2022-04-03 21:00 | disposition left against medical advice (07) | LOC: EMS 20:06 | DX: Z53.21 Procedure and treatment not carried out due to patient leaving prior to being seen by health care provider (principal) ==